=== PATIENT | male | born 1985 | race African-American/Black ===

== ENCOUNTER 2021-01-16 21:31 | Emergency (ER) | payer SELFPAY ==
[~2021-01-16] VITALS: Ht 177.8 cm; Wt 97.4 kg
[2021-01-16 22:45] VITALS: BP 145/87
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
== END 2021-01-17 00:55 | disposition home or self-care (01) ==
LOC: ER 21:31
DX: R59.0 Localized enlarged lymph nodes (principal); Z88.1 Allergy status to other antibiotic agents
CPT/HCPCS: 99281